=== PATIENT | female | born 1960 | race Hispanic/Latino ===

== ENCOUNTER 2024-01-20 07:03 | Day surgery (SDC) | payer OTHER ==
[2024-01-18 15:20] LABS: Absolute Basophils 0.1 K/uL (0-0.5); Absolute Eosinophils 0.1 K/uL (0-0.5); Absolute Lymphocytes (CBC) 2.7 K/uL (0.7-4.9); Absolute Monocytes 0.4 K/uL (0.1-1.3); Absolute Neutrophil 4.4 K/uL (1.8-8.0); Basophils % 0.9 % (0-1.3); Eosinophils % 1.2 % (0-4.4); Hematocrit 40.7 % (36.0-45.0); Hemoglobin 13.9 g/dL (12.0-15.0); Lymphocytes % 35.2 % (15.3-44.8); MCH 28.2 pg (27.0-35.0); MCHC 34.1 g/dL (32.0-36.0); MCV 82.7 fL (80-100); MPV 8.6 fL (7.6-11.3); Neutrophils % 57.7 % (41.7-73.7); Platelets 240 thou/uL (152-406); RBC Red Blood Cell Count 4.92 M/uL (3.86-4.86); Red Cell Distribution Width 13.4 % (12.1-15.2)
[2024-01-18 15:42] LABS: Anion Gap 12.2 mEq/L (5.0-15.0)
[2024-01-18 15:55] LABS: Potassium 3.2 mEq/L (3.5-5.1)
[2024-01-20] MEDS ORDERED: LIDOCAINE 1% MPF 5 ML VIAL ONE (07:07)
[2024-01-20] MEDS ORDERED: propofoL 200 MG/20 ML VIAL IV ONE (07:07)
[2024-01-20] MEDS: Ringers Lactate 1,000 ML IV ONE (07:49)
[2024-01-20 08:55] VITALS: TEMP 97.3
[2024-01-20 08:56] VITALS: O2SAT 99
[2024-01-20 09:12] VITALS: BP 110/68
--- NOTE | 2024-01-24 18:07 | EKG ---
Test Date: 2024-01-18 Test Time: 14:50:54 Rv Detailer: MEASUREMENT RESULTS: Intervals: Rate: 73 DE: 138 QRSD: 90 QT: 372 QTc: 409 [place]: P: 45 DE: 138 QRS: 72 T: 40 INTERPRETIVE STATEMENTS: Poor data quality, interpretation may be adversely affected Normal sinus rhythm Nonspecific T wave abnormality Abnormal ECG No previous ECG available for comparison Electronically Signed On 01-24-24 17:53:51 CDT by Misael Harper
== END 2024-01-20 09:10 | disposition home or self-care (01) ==
LOC: OR 07:03
PROVIDERS: ATTEND Surgery
PROC: 0DJD8ZZ Inspection of Lower Intestinal Tract, Via Natural or Artificial Opening Endoscopic (ICD-10-PCS; principal; 2024-01-20 08:00)
DX: Z12.11 Encounter for screening for malignant neoplasm of colon (principal); K57.30 Diverticulosis of large intestine without perforation or abscess without bleeding; K64.8 Other hemorrhoids; K64.4 Residual hemorrhoidal skin tags
CPT/HCPCS: 93005; 85025; 80048; 36415; 45378; J2704; J2001; J7120